=== PATIENT | female | born 1995 | race Caucasian/White ===

== ENCOUNTER 2016-12-29 05:30 | Day surgery (SDC) | payer BC, OTHER ==
[~2016-12-29] VITALS: Ht 170.2 cm; Wt 68.8 kg
--- NOTE | ~2016-12-29 | O ---
[address] [address] OPERATIVE REPORT Name: AMADEO MAYNARD Room #: DEP [facility]#: [id number] Admission: 12/29/16 Attend Phys: Raj Jaime MD Discharge: 12/29/16 Date of : [birth year] Report #: [id number] THIS REPORT FOR: //name// CC: Raj Lucia DATE OF SERVICE: 12/29/2016 SERVICE: Orthopedics. FACILITY: [facility]. SURGEON: Raj Jaime M.D. [employer] SUPERVISOR: None. PREOPERATIVE DIAGNOSES: 1. Right hip pain. 2. Right hip femoroacetabular impingement. 3. Right hip labral tear. POSTOPERATIVE DIAGNOSES: 1. Right hip pain. 2. Right hip femoroacetabular impingement. 3. Right hip labral tear. PROCEDURE: 1. Right hip arthroscopic acetabuloplasty, subspine. 2. Right hip arthroscopic labral repair. 3. Right hip arthroscopic Cam osteochondroplasty. COMPLICATIONS: None. DRAINS: None. SPECIMENS: None. ANESTHESIA TYPE: General with single shot regional block by anesthesia. FINDINGS: 1. Chondral wave sign with labral tear, treated with Balsam NanoTack suture anchor times 4 with labral tape. 2. Small Cam lesion adjacent to the chondral injury, treated with resection. 3. Capsular repair performed with #2 Vicryl times 3. 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 She had several years of pain in the hip and had been treated conservatively throughout this time, totalling approximately 3-4 years. She had a recent exacerbation going back to beginning of 2016 approximately June and since that time, has failed conservative measures including physical therapy, activity modification, rest, oral medications and injected corticosteroids. Imaging was suggestive of femoroacetabular impingement with an alpha angle of approximately 56 to 58 degrees and a small crossover sign secondary to the subspine on the anterior column of the acetabulum. She had labral tear on the MRI. She also had a cleft in the dome of the acetabular cartilage with subchondral sclerotic bone that was in continuity with the subchondral bone of the normal acetabulum. We had a specific discussion about this that it might be pathologic, but it might be an anatomic variant as these are known to exist as well. We made plans for right hip arthroscopy, treatment of the impingement and labral repair as indicated with possible microfracture of the acetabular chondral irregularity. Risks, benefits, alternatives and indications for surgery discussed with her in detail. Risks include but not limited to pain, bleeding, infection, injury to nerves or blood vessels, persistent pain despite surgical intervention, progression of any preexisting chondral injury, stiffness, need for further surgery as well as complications related to anesthesia such as stroke, heart attack, pulmonary complications, thromboembolic disease and . She had no signs of arthritis on her radiographs. PROCEDURE IN DETAIL: After right lower extremity was correctly identified in the preoperative holding area as the operative extremity, the patient underwent placement of a single shot regional nerve block by the anesthesia team. She was then taken to the operating room and placed supine on operating table. General anesthesia was induced without complication. She was padded appropriately. Prophylactic antibiotics with 900 mg clindamycin were administered at appropriate time. Traction boots were applied to bilateral lower extremities. The femoral head and neck junction was mapped out under fluoroscopy and the Cam lesion was identified and was in the position from about 20 degrees to 60 degrees on the neck and the alpha angle measured 60 degrees at the max. The hip was then prepped and draped in standard sterile fashion. Time-out procedure was performed. Traction was applied to the right lower extremity. A standard anterolateral viewing portal followed by mid anterior working portal was established under fluoroscopic visualization as well as direct arthroscopic evaluation. The femoral head articular cartilage was normal within the socket, as was the acetabular cartilage. The acetabular chondral defect was identified and there was no evidence of traumatic etiology to this and so was left in place. There were stable chondral perimeters to this defect. The [address] [address] OPERATIVE REPORT Name: CAESARAMADEO M Room #: DEP [facility] M.R.#: [id number] Admission: 12/29/16 Attend Phys: Raj Jaime MD Discharge: 12/29/16 Date of : [birth year] Report #: [id number] aspect of the hip was noted to have a mobile labrum with bruising of the labrum as well as a chondral wave sign that extended from the 1:[address] around to the 10 o'clock position and then extending back to about 8:30. There was an intrasubstance labral tear. The transverse capsulotomy was completed and then the capsule was reflected off the dorsal side of the labrum to expose the subspine region and then under fluoroscopic guidance, a subspine acetabuloplasty was performed with the bur. Then, the bur was used to freshen the anterior rim for labral refixation and then a distal anterolateral accessory portal was established. The labrum was repaired with a series of 3 mattress sutures working anteromedially until laterally, which restored the chondral wave and the cartilage stability. Scope was then placed anteriorly and the intrasubstance tear within the labrum that was located more posterolaterally, was fixed with a single NanoTack suture anchor with tape with a cerclage suture. Chondroplasty was then performed and then traction was let down. A suction seal methodist was confirmed. The bur was then used to perform a Cam osteoplasty in a standard fashion. The instruments were removed from the hip. The Cam resection was evaluated under fluoroscopy and then additional bone was identified and the Cam resection was completed. Final x-rays were taken and the scope was placed back into hip. A dynamic impingement exam was performed to ensure no further cam deformity was present. The bony debris was lavaged out of the hip and then the capsular layer was closed with a total of three #2 Vicryl sutures working laterally to medial. The instruments were removed from the hip, portal sites were closed with a deep followed by superficial 3-0 Monocryl suture and sterile dressing was applied. The patient was awakened from anesthesia and taken to recovery room in stable condition. There were no complications and all counts were recorded as correct. <ELECTRONICALLY SIGNED> By: Raj Jaime MD 12/30/16 [id number] MD nayana Howard
[~2016-12-29 05:30] MED LIST: DEPO-PROVE150 MG/1 M IM
[2016-12-29 06:27] VITALS: BP 113/82
== END 2016-12-29 11:58 | disposition home or self-care (01) ==
LOC: OR 05:30 → TBA 05:30 → OR 10:17
DX: S73.101A Unspecified sprain of right hip, initial encounter (principal); X58.XXXA Exposure to other specified factors, initial encounter; Y93.9 Activity, unspecified; Y92.89 Other specified places as the place of occurrence of the external cause; Y99.9 Unspecified external cause status; M25.851 Other specified joint disorders, right hip; F17.210 Nicotine dependence, cigarettes, uncomplicated; F41.9 Anxiety disorder, unspecified; L40.9 Psoriasis, unspecified
CPT/HCPCS: 50010; 50101; 50386; 51538; 52298; 52304; 55430; 56524; 56527; 57092; 62110; 62900; 64042; 70005